=== PATIENT | female | born 1975 | race Caucasian/White ===

== ENCOUNTER 2016-05-30 23:00 | Emergency (ER) | payer BC ==
[~2016-05-30] VITALS: Ht 170.2 cm; Wt 136.0 kg
[~2016-05-30 23:00] MED LIST: ALBUAER2 INH; CALCTAB5 PO; CHOL1000 PO; IBUP-103 PO; INDO1CAP34 PO; MAGN250T3 PO; MULTTAB58 PO; RIZA5TAB10 PO
[2016-05-30 23:04] VITALS: TEMP 36.9; Ht 170.2 cm; Wt 136.0 kg
[2016-05-30] MEDS ORDERED: ACET-749 PO (23:21)
[2016-05-30] MEDS ORDERED: BENZ1CAP90 PO (23:28)
[2016-05-30] MEDS ORDERED: TYLENOL #3 HOME PACK PO ONE (23:30)
[2016-05-30] MEDS ORDERED: CALCTAB7 PO (23:33)
[2016-05-30] MEDS ORDERED: ALBU18002 INH (23:36)
[2016-05-30 23:37] VITALS: BP 98/66; PULSE 80; O2SAT 95
--- NOTE | 2016-05-30 23:59 | EMERGENCY ROOM VISIT NOTE ---
History First contact with patient: 23:07 Chief Complaint: SORETHROAT Stated Complaint: SORE THROAT,FEELS SWOLLEN SHUT,HURTS TO BREATHE History of Present Illness The patient is a 40 year old female who presents to the Emergency Room with complaints of sore throat, runny nose, mild nonproductive cough and low-grade fever. The patient reports that she started to develop sore throat this morning. She reports the pain has progressed we worsened throughout the day. She reports notable for pain, and believes that she may be starting to swelling. She also complains of bilateral ear pain. The patient denies history of asthma. She denies any bone shaking chills, back pain or myalgias. She rates her throat discomfort a 7 out of 10. Review of Systems 10 system review was performed and was negative except for pertinent positives and negatives as indicated in history of present illness Past Medical/Surgical History Medical Problems: (1) Factor V Leiden Family History FHx: heart disease Hypertension Kidney disease Kidney stones Social History Smoking Status: Former Smoker Alcohol Use: none Drug Use: none Marital Status: Occupation Status: employed Current/Historical Medications Scheduled Calcium Carbonate-Vitamin D W/ (Caltrate 600 Plus), 1 TAB PO DAILY Cholecalciferol (Vitamin D3), 4,000 UNITS PO DAILY Ibuprofen Tab (Advil), 400-600 MG PO Q6H Magnesium (Magnesium 250 mg), 250 MG PO DAILY Multiple Vitamin (Multivitamin), 1 TAB PO DAILY Scheduled PRN Acetaminophen/Codeine (Tylenol W/Codeine #3), 1-2 TABS PO q4-6h PRN for Pain Albuterol Sulfate (Proair Respiclick), 2 PUFFS INH DIRECTED PRN for SOB/ Wheezing Benzonatate (Tessalon Perles), 200 MG PO TID PRN for Cough Indomethacin (Indomethacin), 25 MG PO UD PRN for Headache Rizatriptan Benzoate (Maxalt), 5-10 MG PO UD PRN for Migraine Allergies Coded Allergies: Nickel (Verified Allergy, Severe, RASH, BLISTERS AND SWELLING OF AREA, 05/30) Physical Exam Vital Signs Date Time Temp Pulse Resp B/P Pulse Ox O2 Delivery O2 Flow Rate FiO2 05/30/16 23:37 80 18 98/66 95 05/30/16 23:20 Room Air 05/30/16 23:04 36.9 99 20 132/80 98 Room Air 05/30/16 23:04 97 Room Air Pain Rating (0-10): 7.0 Physical Exam CONSTITUTIONAL: Healthy and well nourished. Alert and oriented X 3 with positive affect. Patient does not appear acutely ill or toxic. HEENT: Normocephalic, atraumatic. Pupils equal, round and reactive. Examination of the ear shows mild bilateral TM bulging without air-fluid levels or serous effusion. Mild clear rhinorrhea noted. No scleral icterus or conjunctival injection. OROPHARYNX: Minimal posterior pharyngeal erythema without tonsillar hypertrophy , exudates or angioedema. No evidence for Olman's angina or retropharyngeal abscess. NECK: Full active range of motion without discomfort. Trachea is mobile and nontender. LYMPHATICS: No cervical chain adenopathy noted. RESPIRATORY: Clear to auscultation bilaterally with no wheezing, crackles, rhonchi or stridor. CARDIOVASCULAR: Regular rate and rhythm with no murmurs, rubs or gallops. GASTROINTESTINAL: Bowel sounds present in all quadrants. Soft and nontender to palpation. MUSCULOSKELETAL: Full range of motion of all joints without discomfort. INTEGUMENTARY: No rash or other significant dermatologic conditions noted. NEUROLOGIC: No focal neurologic deficits noted. Medical Decision & Procedures Laboratory Results Rapid strep was performed and was negative. Strep cultures are pending. Medications Administered Medications (Trade) Dose Ordered Sig/Crystal Route Start Time Stop Time Status Last Admin Dose Admin Acetaminophen/ Codeine Phosphate (TYLENOL W/ CODEINE #3 Home Pack) 1 homepack UD ONCE PO 05/30/16 23:30 05/30/16 23:31 DC 05/30/16 23:34 1 HOMEPACK ED Course Patient history and physical exam were performed. Nurse's notes were reviewed. Vital signs were reviewed and were normal. Rapid strep was performed and was negative. Strep cultures are pending. The patient was advised that she likely has a viral upper respiratory infection. We'll contact her in 48-72 hours with any positive strep cultures. She was encouraged to alternate ibuprofen and Tylenol for baseline pain relief. She was provided a home pack and prescription for Tylenol #3, and instructed to replace the Tylenol in her alternating rotation as needed for worse pain. A sore throat handout was provided. The patient also requested a prescription for Tessalon Perles as they help significantly with cough. A prescription and was provided. The patient's [id number] reports that she has Tessalon Perles at home that she can use overnight. The patient was instructed to follow-up with her PCP as needed for any persistent symptoms. Return to the emergency department for any significantly worsening symptoms. The patient was happy with plan of care, voiced understanding of all discharge instructions, and rated her discomfort a 4 out of 10 at the time of discharge. She refused any additional medications while in the emergency department. Impression Primary Impression: Viral URI Additional Impression: Sore throat (viral) Departure Information Dispostion Home / Self-Care Prescriptions Benzonatate (Tessalon Perles) 200 Mg Cap 200 MG PO TID Y for Cough, #30 CAP Prov: Brandon Arriola PA 05/30/16 Acetaminophen/Codeine (Tylenol W/Codeine #3) 300 Mg/30 Mg Tab 1-2 TABS PO q4-6h Y for Pain, #20 TAB For Initial Treatment Prov: Brandon Arriola PA 05/30/16 Forms HOME CARE DOCUMENTATION FORM, IMPORTANT VISIT INFORMATION Patient Instructions Sore Throats Self Care, [facility], ED URI Viral Additional Instructions Your rapid strep test is negative. We will culture as well. You will be contacted in 48-72 hours with any positive strep cultures. Otherwise this is a viral infection that will not respond to antibiotics. Read sore throat handout. Ibuprofen 800 mg and/or Tylenol 1000 mg every 8 hours. You may also alternate these medications for more effective pain relief: Ibuprofen --4 HRS--> Tylenol --4 HRS--> ibuprofen --4 HRS--> Tylenol .... Tylenol with codeine if needed for worse pain. Do not drink or drive while taking Tylenol with Codeine. Tessalon pearles as needed for cough. Follow-up with your family doctor as needed for further management. Problem Qualifiers
[2017-01-18] MEDS ORDERED: IMD/2 PO (12:59)
== END 2016-05-30 23:37 | disposition home or self-care (01) ==
LOC: C.EDB 23:01
DX: J02.8 Acute pharyngitis due to other specified organisms (principal); D68.2 Hereditary deficiency of other clotting factors; Z87.891 Personal history of nicotine dependence; Z82.49 Family history of ischemic heart disease and other diseases of the circulatory system; Z84.1 Family history of disorders of kidney and ureter

== ENCOUNTER 2017-01-16 15:51 | Observation (INO) | payer BC ==
[~2017-01-16] VITALS: Ht 170.2 cm; Wt 134.0 kg
[~2017-01-16 15:51] MED LIST changes: +ALBU18002 INH; -ALBUAER2 INH; -CALCTAB5 PO; +CALCTAB7 PO
[2017-01-16] MEDS ORDERED: SODIUM CHLORIDE 0.9% 1000ML 1,000 ML IV STA (16:30)
[2017-01-16] MEDS ORDERED: OPTIRAY 320 IV PRN (16:45)
[2017-01-16] MEDS ORDERED: MOME110A INH (16:45)
[2017-01-16] MEDS ORDERED: MoRPHine SULFATE 4 MG/ML 1 ML CARP\\VIAL ONE ×2 (16:45→19:48)
[2017-01-16] MEDS: MoRPHine SULFATE 10 MG/ML CARP/VIAL IV PRN ×2 (16:51→17:46)
[2017-01-16] MEDS ORDERED: ALBU0.633 INH (16:53)
[2017-01-16 16:59] LABS: BASO % 0.7 %; BASO ABS # 0.06 K/uL (0-0.2); COMPLETE YES; EOS % 2.6 %; HEMATOCRIT 39.9 % (37-47); IG% 0.2 %; LYMPH ABS # 3.14 K/uL (1.2-3.4); MEAN CELL VOLUME 90.7 fL (80-100); MEAN CORPUSCULAR HEMOGLOBIN 31.4 pg (25-34); MEAN CORPUSCULAR HGB CONC 34.6 g/dl (32-36); MEAN PLATELET VOLUME 9.4 fL (7.4-10.4); MONO % 8.5 %; PLATELET COUNT 340 K/uL (130-400); WHITE BLOOD COUNT 9.23 K/uL (4.8-10.8)
[2017-01-16] MEDS ORDERED: ONDANSETRON INJ 2 MG/ML 2 ML VIAL IV STA (17:04)
[2017-01-16 17:10] LABS: ALT/SGPT 25 U/L (12-78); AST/SGOT 16 U/L (15-37); BLOOD UREA NITROGEN 9 mg/dl (7-18); BUN/CREATININE RATIO 12.4 (10-20); CALCIUM 8.8 mg/dl (8.5-10.1); CARBON DIOXIDE 25 mmol/L (21-32); CHLORIDE 107 mmol/L (98-107); CREATININE 0.75 mg/dl (0.60-1.20); GLUCOSE 80 mg/dl (70-99); POTASSIUM 4.4 mmol/L (3.5-5.1); SODIUM 138 mmol/L (136-145)
[2017-01-16 17:13] LABS: URINE APPEARANCE CLEAR (CLEAR); URINE BILIRUBIN NEG (NEG); URINE COLOR YELLOW; URINE EPITHELIAL CELL AUTO >30 /lpf (0-5); URINE NITRITE NEG (NEG); URINE PH 6.5 (4.5-7.5); URINE SPECIFIC GRAVITY 1.022 (1.000-1.030); UROBILINOGEN NEG (NEG)
[2017-01-16 17:13] LABS: ALKALINE PHOSPHATASE 63 U/L (45-117)
[2017-01-16 17:16] LABS: MANUAL MICROSCOPIC REQUIRED? NO; REVIEW REQ? YES
[2017-01-16] MEDS ORDERED: HYDROmorphone INJ 0.5 MG/0.5 ML SYR IV STA (18:23)
--- NOTE | 2017-01-16 19:26 | DIAGNOSTIC IMAGING REPORT ---
ABD/PELVIS IV CONTRAST ONLY CT DOSE: 2212.55 mGy.cm HISTORY: Pain RLQ abd pain; unable to tolerate oral contrast TECHNIQUE: Multiaxial CT images of the abdomen and pelvis were performed following the use of intravenous contrast. A dose lowering technique was utilized adhering to the principles of ALARA. COMPARISON STUDY: 02/09/2015 FINDINGS: Lung bases are clear. Liver spleen and pancreas are unremarkable. Kidneys demonstrate a 1.5 mm nonobstructing cortical calcification lower pole right kidney. There is no evidence for an obstructing urinary tract calculus. Prior cholecystectomy. Bowel pattern is considered nonobstructive. Trace amount of free fluid within the pelvic cul-de-sac most likely physiologic. 1.5 cm left ovarian cyst. IMPRESSION: 1.5 cm left ovarian cyst. 1.5 mm nonobstructing lower pole calcification right kidney. Prior cholecystectomy. Otherwise negative study. The above report was generated using voice recognition software. It may contain grammatical, syntax or spelling errors. Electronically signed by: Vincent Streeter M.D. 01/16/2017 7:25 PM Dictated Date/Time: 01/16/2017 7:18 PM
[2017-01-16 20:20] VITALS: Ht 170.2 cm; Wt 134.0 kg
[2017-01-16] MEDS ORDERED: IV FLUIDS COMPLETED PRN (21:00)
[2017-01-16 21:13] VITALS: O2SAT 96
[2017-01-16 21:13] LABS: PREG INTERNAL POSITIVE QC POS CONTROL LINE
[2017-01-16 21:14] LABS: PREG INTERNAL NEGATIVE QC NEG CLEAR BACKGROUND
[2017-01-16] MEDS ORDERED: ACETAMINOPHEN IV 650 MG in EMPTY BAG 0 ML IV PRN (21:15)
[2017-01-16] MEDS ORDERED: ACETAMINOPHEN 325 MG TAB PO PRN (21:15)
[2017-01-16] MEDS ORDERED: ONDANSETRON INJ 2 MG/ML 2 ML VIAL IV PRN (21:15)
[2017-01-16] MEDS ORDERED: LORAZEPAM 2 MG/ML 1 ML VIAL IV PRN (21:15)
[2017-01-16] MEDS ORDERED: PROMETHAZINE HCL INJ 12.5 MG in SODIUM CHLORIDE 0.9% 50ML 50 ML IV PRN (21:15)
[2017-01-16 21:30] VITALS: BP 115/79; PULSE 75; TEMP 36.8; O2SAT 97
[2017-01-16] MEDS ORDERED: LORAZEPAM INJ 0.5 MG in SYRINGE 0.75 ML IV PRN (22:00)
[2017-01-16] MEDS ORDERED: SODIUM CHLORIDE 0.9% 1000ML 1,000 ML IV ONE (22:00)
[2017-01-16 22:22] LABS: INR 0.9 (0.9-1.1); PROTHROMBIN TIME (PATIENT) 10.1 SECONDS (9.0-12.0)
--- NOTE | 2017-01-17 00:06 | EMERGENCY ROOM VISIT NOTE ---
ED Visit Note First contact with patient: 16:08 Chief Complaint: Having pain in my lower abdomen. History of Present Illness: Ms. Manuel is a 41 year-old white female ambulates into the ED accompanied by family members complaining of lower quadrant abdominal pain. Historically patient reports status post cholecystectomy and no gastrointestinal disorders Patient reports a gradual onset of lower abdominal pain that started 4 days ago. Since that time the pain has been worsening and becoming slightly more focused in the right lower quadrant. The pain is currently described as constant sharp, but does report it does wax and wane in intensity. The pain is nonradiating. She her pain worsens when she is having positional changes and is slightly improved when she is completely lying still curled up in a ball. She has not been able to take any medications because of her nausea/vomiting. Associated with her pain she reports she has been having intermittent chills, nausea and vomiting, diarrhea up to 6 or 7 times a day; described as soft but not watery, decreased appetite and foul-smelling flagellate patient. Patient denies sweats, skin eruptions, skin color changes, upper respiratory tract symptoms, shortness of breath, chest pain, constipation, rectal bleeding, black/tarry stools, urinary symptoms, hematuria, vaginal bleeding, vaginal discharge, back/flank pain. Review of Systems: As noted above in history of present illness. All body systems were reviewed and found to be negative as noted above. Past Medical History: Asthma, bronchitis, pneumonia, status post cholecystectomy. Current Medications: Medications Dose Route/Sig Max Daily Dose Days Date Category Dose Instructions Albuterol Sulfate 0.63 Mg/3 Ml Neb 1 Vial INH Q4H PRN 01/16/17 Reported Asmanex 30 Metered Doses (Mometasone Furoate (Inhalation) 110 Mcg/Inh Aer 2 Puffs INH BID 01/16/17 Reported Proair Respiclick (Albuterol Sulfate) 108 Mcg/Act Aer 2 Puffs INH DIRECTED PRN 05/30/16 Reported Caltrate 600 Plus (Calcium Carbonate-Vitamin D W/) 1 Tab Tab 1 Tab PO DAILY 05/30/16 Reported Indomethacin 25 Mg Cap 25 Mg PO UD PRN 11/17/15 Reported Magnesium 250 mg (Magnesium) 1 Tab Tab 250 Mg PO DAILY 11/17/15 Reported Vitamin D3 (Cholecalciferol) 1,000 Unit Tab 4,000 Units PO DAILY 11/17/15 Reported Multivitamin (Multiple Vitamin) 1 Tab Tab 1 Tab PO DAILY 05/31/15 Reported WITH OMEGA 3 Maxalt (Rizatriptan Benzoate) 5 Mg Tab 5-10 Mg PO UD PRN 02/09/15 Reported TAKE 5-10 MG NEEDED FOR MIGRAINE, MAY REPEAT AFTER 2 HOURS IF NEEDED. MAXIMUM 6 TABLETS/24 HOURS. Allergies to Medications: Patient denies. Social History: Patient is currently employed; she feels safe in her home environment; she denies tobacco and alcohol use. Physical Examination: Vital Signs: Date Time Temp Pulse Resp B/P (MAP) Pulse Ox O2 Delivery O2 Flow Rate FiO2 01/16/17 20:31 63 01/16/17 20:20 Room Air 01/16/17 20:15 63 19 97 01/16/17 20:01 116/71 01/16/17 19:52 128/83 01/16/17 19:45 71 19 93 01/16/17 18:31 65 18 111/66 98 Room Air 01/16/17 17:36 89 01/16/17 15:53 36.9 87 16 119/81 93 Room Air GENERAL: 41-year-old female in moderate to severe distress due to pain, nontoxic -appearing, afebrile and hemodynamically stable. NEUROLOGICAL: Awake, alert and oriented to person, place and time. Answering questions appropriately and following commands. Normal gait. Good hand eye coordination. SKIN: Warm, dry and pink. No soft tissue eruptions or trauma noted. HEENT: Atraumatic and normocephalic. PERRLA. Sclera white and conjunctiva pink. Oral cavity moist and pink. Pharynx is nonerythematous or edematous. Speech normal. No lymphadenopathy. Trachea midline. No jugular venous distention. BACK: No tenderness over the bony spine. No CVA tenderness. THORAX: Lungs sounds are clear to auscultation and equal bilaterally with symmetrical chest wall. No wheezing, rales or rhonchi. No crepitus, tenderness , subcutaneous air or deformities noted. HEART: Regular rate and rhythm. No gallops, rubs or murmurs are appreciated. ABDOMEN: Obese and soft with mild tenderness in the left lower quadrant and moderate to severe tenderness with guarding in the right lower quadrant over McBurney's point. Decreased bowel sounds in all quadrants. No rigidity or organomegaly. EXTREMITIES: Moves all extremities well on command and with purpose. All distal neurovascular statuses are intact and equal bilaterally. ED Course: Patient is assessed as noted above. Laboratory Testing: Test 01/16/17 16:35 01/16/17 16:42 Range/Units White Blood Count 9.23 4.8-10.8 K/uL Red Blood Count 4.40 4.2-5.4 M/uL Hemoglobin 13.8 12.0-16.0 g/dL Hematocrit 39.9 37-47 % Mean Corpuscular Volume 90.7 80-100 fL Mean Corpuscular Hemoglobin 31.4 25-34 pg Mean Corpuscular Hemoglobin Concent 34.6 32-36 g/dl Platelet Count 340 130-400 K/uL Mean Platelet Volume 9.4 7.4-10.4 fL Neutrophils (%) (Auto) 54.0 % Lymphocytes (%) (Auto) 34.0 % Monocytes (%) (Auto) 8.5 % Eosinophils (%) (Auto) 2.6 % Basophils (%) (Auto) 0.7 % Neutrophils # (Auto) 4.99 1.4-6.5 K/uL Lymphocytes # (Auto) 3.14 1.2-3.4 K/uL Monocytes # (Auto) 0.78 0.11-0.59 K/uL Eosinophils # (Auto) 0.24 0-0.5 K/uL Basophils # (Auto) 0.06 0-0.2 K/uL RDW Standard Deviation 41.8 36.4-46.3 fL RDW Coefficient of Variation 12.5 11.5-14.5 % Immature Granulocyte % (Auto) 0.2 % Immature Granulocyte # (Auto) 0.02 0.00-0.02 K/uL Prothrombin Time 10.1 9.0-12.0 SECONDS Prothromb Time International Ratio 0.9 0.9-1.1 Sodium Level 138 136-145 mmol/L Potassium Level 4.4 3.5-5.1 mmol/L Chloride Level 107 98-107 mmol/L Carbon Dioxide Level 25 21-32 mmol/L Anion Gap 6.0 3-11 mmol/L Blood Urea Nitrogen 9 7-18 mg/dl Creatinine 0.75 0.60-1.20 mg/dl Est Creatinine Clear Calc Drug Dose 141.1 ml/min Estimated GFR () 114.8 Estimated GFR (Non- 99.0 BUN/Creatinine Ratio 12.4 10-20 Random Glucose 80 70-99 mg/dl Calcium Level 8.8 8.5-10.1 mg/dl Magnesium Level 2.1 1.8-2.4 mg/dl Total Bilirubin 0.3 0.2-1 mg/dl Direct Bilirubin < 0.1 0-0.2 mg/dl Aspartate Amino Transf (AST/SGOT) 16 15-37 U/L Alanine Aminotransferase (ALT/SGPT) 25 12-78 U/L Alkaline Phosphatase 63 45-117 U/L Total Protein 7.5 6.4-8.2 gm/dl Albumin 3.5 3.4-5.0 gm/dl Lipase 213 73-393 U/L Urine Color YELLOW Urine Appearance CLEAR CLEAR Urine pH 6.5 4.5-7.5 Urine Specific [place] 1.022 1.000-1.030 Urine Protein NEG NEG Urine Glucose (UA) NEG NEG Urine Ketones NEG NEG Urine Occult Blood NEG NEG Urine Nitrite NEG NEG Urine Bilirubin NEG NEG Urine Urobilinogen NEG NEG Urine Leukocyte Esterase TRACE NEG Urine WBC (Auto) 1-5 0-5 /hpf Urine RBC (Auto) 0-4 0-4 /hpf Urine Hyaline Casts (Auto) 1-5 0-5 /lpf Urine Epithelial Cells (Auto) >30 0-5 /lpf Urine Bacteria (Auto) 1+ NEG Urine Test NEG NEG C.difficile Toxin B Gene (PCR): No C. difficile toxin B gene detected Rotavirus Antigen: Negative for Rotavirus Antigen WBC Smear: Pending Shiga Toxin Test: Pending. Stool Culture: Pending Urine Culture: Pending IV Contrast Abdominal/Pelvic CT: Was reviewed by myself and read by the radiologist and shows a 1.5 cm left ovarian cyst, 1.5 mm nonobstructing lower pole calcification in the right kidney, status post cholecystectomy, nonobstructive bowel gas pattern, trace amount of free fluid in the cul-de-sac and normal-appearing appendix. Patient was with normal saline and she received 4 mg of Zofran IV for nausea, a total of 12 mg of morphine IV for pain and 0.5 mg of Dilaudid IV for pain. Patient was reassessed multiple times during her stay in the emergency department. Patient's case was reviewed with Dr. Hoyt; we agreed on diagnostic approach, treatment, disposition and plan. Patient's case was consulted with case management and the [facility] , Dr. Peralta; for medical observation/admission. Patient was educated about today's findings. Clinical Impression: Irretractable right lower quadrant abdominal pain. Decision-Making: Initially my differential diagnosis I considered appendicitis, peritonitis, ureter calculus, ovarian torsion, ectopic , ovarian cyst rupture and other causes. Disposition and Plan: Patient be brought in the hospital by the hospitalist for medical observation/admission; please see their notes and orders for final disposition and plan.
[2017-01-17] MEDS: TRAMADOL HCL 50 MG TAB PO PRN ×2 (00:22→09:24)
[2017-01-17] MEDS ORDERED: IBUPROFEN 200 MG TAB PO PRN (02:30)
--- NOTE | 2017-01-17 04:13 | HISTORY & PHYSICAL EXAMINATION ---
DATE OF ADMISSION: 01/16/2017 PRIMARY CARE DOCTOR: Dr. Felix. CHIEF COMPLAINT: Abdominal pain. HISTORY OF PRESENT ILLNESS: History obtained from patient and records. Medical history is significant for bronchial asthma, factor V Leiden deficiency , past tobacco abuse, obesity, migraine. Four days history of achy right abdominal pain, nausea, vomiting, and diarrhea, nonbloody. The patient denies dysuria. No fever, no chills, no chest pain, no shortness of breath. Last week, patient completed a course of Z-ANDREA for bronchitis. Intractable pain in the emergency room. MEDICAL HISTORY: As above. SURGERIES: She has had cholecystectomy, dental surgery. HOME MEDICATIONS: Include multivitamins, magnesium , albuterol, ProAir, Caltrate, vitamin D3, indomethacin, Asmanex. ALLERGIES: ALLERGIC TO NICKEL. FAMILY HISTORY: Blood clots. PERSONAL AND SOCIAL HISTORY: Past tobacco abuse. 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 REVIEW OF SYSTEMS: As per HPI. All other ROS negative. PHYSICAL EXAMINATION: VITAL SIGNS: Blood pressure was noted to be SBP 110/80, WI 80 RR 16 T 37, O2 sats 97 on room air. GENERAL: Noted to be uncomfortable, obese, no respiratory distress. SKIN: Normal color, dry. HEENT: [place] palpebral conjunctivae. Dry mucosa. NECK: Short neck. Nontender. CHEST: Clear to auscultation. No chest wall tenderness. Cardiovascular : RRR, Palpable LE pulses ABDOMEN: Some distention and some tenderness on the right side. EXTREMITIES: Bilateral lower extremity edema, no tenderness. NEUROLOGIC: No gross focality, coherent. LABORATORY AND DIAGNOSTIC DATA: Hemoglobin was noted to be 13.8, hematocrit 39.9, white cells 9.3, platelets 340. Sodium 137, potassium 4.4, chloride 107, CO2 of 25, BUN 9, creatinine 0.7, glucose 80. LFTs, lipase normal. UA, trace WBC esterase, hyaline casts, epithelial cells. CT abdomen and pelvis showed 1.5 left ovarian cyst, prior cholecystectomy, otherwise negative study. ASSESSMENT AND PLAN: 1. Intractable abdominal pain 2 to acute viral gastroenteritis no signs of systemic toxicity 2. Bronchial asthma, stable 3. past tobacco abuse [facility] supportive management for viral gastroenteritis consisting of analgesia, antiemetics, IV fluids DVT prophylaxis, Lovenox subcutaneously. Full code. MTDD
[2017-01-17] MEDS: KETOROLAC TROMETHAMINE 30 MG/ML VIAL IV PRN ×2 (05:27→14:27)
[2017-01-17 06:04] LABS: BASO % 0.4 %; BASO ABS # 0.04 K/uL (0-0.2); COMPLETE YES; EOS % 2.4 %; HEMATOCRIT 37.2 % (37-47); IG% 0.3 %; LYMPH % 35.4 %; LYMPH ABS # 3.33 K/uL (1.2-3.4); MEAN CELL VOLUME 91.6 fL (80-100); MEAN CORPUSCULAR HEMOGLOBIN 30.3 pg (25-34); MEAN CORPUSCULAR HGB CONC 33.1 g/dl (32-36); MEAN PLATELET VOLUME 9.3 fL (7.4-10.4); MONO % 8.1 %; NEUT % 53.4 %; PLATELET COUNT 310 K/uL (130-400); RED BLOOD COUNT 4.06 M/uL (4.2-5.4)
[2017-01-17 07:46] VITALS: BP 76/55; PULSE 59; TEMP 36.6; O2SAT 96
[2017-01-17] MEDS ORDERED: INFLUENZA ADMINISTRATION CHARGE ONE (08:00)
[2017-01-17] MEDS ORDERED: INFLUENZA VIRUS QUAD VACCINE 0.5 ML SYR IM. ONE (08:00)
[2017-01-17] MEDS: ENOXAPARIN 40 MG/0.4 ML SYR SQ SCH (08:06)
[2017-01-17 08:12] VITALS: BP 82/48
--- NOTE | 2017-01-17 11:54 | Progress Note ---
Medicine Progress Note Date & Time of Visit: Jan 17, 2017 at 11:38. Subjective Pt was seen and examined Lying in bed with no distress on face time talking with her phone She said that she continues to have abdominal tenderness in her right side of her abdomen she said that she has not had any BM today tolerated clear liquid diet and would like to try full liquid her pain seems to improve today denies any chest pain, palpitation, dizziness and sob Objective Last 8 Hrs Date Time Temp Pulse Resp B/P (MAP) Pulse Ox O2 Delivery O2 Flow Rate FiO2 01/17/17 08:30 Room Air 01/17/17 08:12 82/48 (59) 01/17/17 07:46 36.6 59 18 76/55 (62) 96 Physical Exam: General-[] Eyes-[] ENT-[] Neck-[] Lungs-[] Heart-[] Abdomen-[] Extremities-[] Neuro-[] Laboratory Results: Last 24 Hours Test 01/16/17 16:35 01/16/17 16:42 01/17/17 05:35 White Blood Count 9.23 K/uL 9.40 K/uL Red Blood Count 4.40 M/uL 4.06 M/uL Hemoglobin 13.8 g/dL 12.3 g/dL Hematocrit 39.9 % 37.2 % Mean Corpuscular Volume 90.7 fL 91.6 fL Mean Corpuscular Hemoglobin 31.4 pg 30.3 pg Mean Corpuscular Hemoglobin Concent 34.6 g/dl 33.1 g/dl Platelet Count 340 K/uL 310 K/uL Mean Platelet Volume 9.4 fL 9.3 fL Neutrophils (%) (Auto) 54.0 % 53.4 % Lymphocytes (%) (Auto) 34.0 % 35.4 % Monocytes (%) (Auto) 8.5 % 8.1 % Eosinophils (%) (Auto) 2.6 % 2.4 % Basophils (%) (Auto) 0.7 % 0.4 % Neutrophils # (Auto) 4.99 K/uL 5.01 K/uL Lymphocytes # (Auto) 3.14 K/uL 3.33 K/uL Monocytes # (Auto) 0.78 K/uL 0.76 K/uL Eosinophils # (Auto) 0.24 K/uL 0.23 K/uL Basophils # (Auto) 0.06 K/uL 0.04 K/uL RDW Standard Deviation 41.8 fL 42.6 fL RDW Coefficient of Variation 12.5 % 12.8 % Immature Granulocyte % (Auto) 0.2 % 0.3 % Immature Granulocyte # (Auto) 0.02 K/uL 0.03 K/uL Prothrombin Time 10.1 SECONDS Prothromb Time International Ratio 0.9 Sodium Level 138 mmol/L Potassium Level 4.4 mmol/L Chloride Level 107 mmol/L Carbon Dioxide Level 25 mmol/L Anion Gap 6.0 mmol/L Blood Urea Nitrogen 9 mg/dl Creatinine 0.75 mg/dl Est Creatinine Clear Calc Drug Dose 141.1 ml/min Estimated GFR () 114.8 Estimated GFR (Non- 99.0 BUN/Creatinine Ratio 12.4 Random Glucose 80 mg/dl Calcium Level 8.8 mg/dl Magnesium Level 2.1 mg/dl Total Bilirubin 0.3 mg/dl Direct Bilirubin < 0.1 mg/dl Aspartate Amino Transf (AST/SGOT) 16 U/L Alanine Aminotransferase (ALT/SGPT) 25 U/L Alkaline Phosphatase 63 U/L Total Protein 7.5 gm/dl Albumin 3.5 gm/dl Lipase 213 U/L Urine Color YELLOW Urine Appearance CLEAR Urine pH 6.5 Urine Specific [place] 1.022 Urine Protein NEG Urine Glucose (UA) NEG Urine Ketones NEG Urine Occult Blood NEG Urine Nitrite NEG Urine Bilirubin NEG Urine Urobilinogen NEG Urine Leukocyte Esterase TRACE Urine WBC (Auto) 1-5 /hpf Urine RBC (Auto) 0-4 /hpf Urine Hyaline Casts (Auto) 1-5 /lpf Urine Epithelial Cells (Auto) >30 /lpf Urine Bacteria (Auto) 1+ Urine Test NEG Date/Time Source Procedure Growth Status 01/16/17 17:00 Stool C.difficile Toxin B Gene (PCR) - Final No C. difficile toxin B gene detected Complete 01/16/17 17:00 Stool Rotavirus Antigen - Final Negative for Rotavirus Antigen Complete 01/16/17 17:00 Stool WBC Smear - Final Resulted 01/16/17 17:00 Stool Shiga Toxin Test Pending Resulted 01/16/17 17:00 Stool Stool Culture Pending Resulted 01/16/17 16:42 Urine , Clean Catch Urine Culture Pending Received Assessment & Plan Abdominal pain/ Nausea/Diarrhea possible related viral gastroenteritis CT abd showed 1.5 cm left ovarian cyst. 1.5 mm nonobstructing lower pole calcification right kidney. Otherwise negative study Stool for C-diff and rotavirus negative Continue pain control, Zofran advanced diet to full liquid continue IVF loperamide given for the diarrhea Abnormal UA Asymptomatic afebrile, no leukocytosis preliminary urine cx growth pinpoint, will reintubate No abx given Bronchial asthma stable Obesity Counseling on weight loss DVT px on Lovenox subq CODE Status Full code Current Inpatient Medications: Current Inpatient Medications Medications (Trade) Dose Ordered Sig/Crystal Route Start Time Stop Time Status Last Admin Dose Admin Ioversol (Optiray 320) 125 ml UD PRN IV 01/16/17 16:45 01/20/17 16:44 Miscellaneous (Iv Fluids Completed) 1 ea PRN PRN N/A 01/16/17 21:00 01/16/18 20:59 Enoxaparin Sodium (Lovenox Inj) 40 mg Q24H SQ 01/17/17 09:00 02/16/17 08:59 01/17/17 08:06 40 MG Acetaminophen (Tylenol Tab) 650 mg Q4H PRN PO 01/16/17 21:15 02/15/17 21:14 Ondansetron HCl (Zofran Inj) 4 mg Q6H PRN IV 01/16/17 21:15 02/15/17 21:14 01/17/17 00:22 4 MG Promethazine HCl 12.5 mg/Sodium Chloride 50.5 ml @ 204 mls/hr Q6H PRN IV 01/16/17 21:15 02/15/17 21:14 Ketorolac Tromethamine (Toradol Inj) 30 mg Q6H PRN IV 01/16/17 21:15 01/21/17 21:14 01/17/17 05:27 30 MG Lorazepam (Ativan Inj) 0.5 mg Q4H PRN IV 01/16/17 21:15 02/15/17 21:14 Tramadol HCl (Ultram Tab) not relieved by tylenol @ Q6H PRN PO 01/16/17 21:15 02/15/17 21:14 01/17/17 09:24 50 MG Acetaminophen 650 mg/Empty Bag 65 ml @ 260 mls/hr Q6H PRN IV 01/16/17 21:15 02/15/17 21:14 Lorazepam 0.5 mg/ Syringe 1 ml @ 1 mls/min Q4H PRN IV 01/16/17 22:00 02/15/17 21:59 Ibuprofen (Advil Tab) 400 mg Q6H PRN PO 01/17/17 02:30 02/16/17 02:29 Miscellaneous Information (Order Awaiting Action) 1 ea QS N/A 01/17/17 16:00 02/16/17 15:59
[2017-01-17 15:41] VITALS: BP 115/74; PULSE 72; TEMP 37; O2SAT 93
[2017-01-17] MEDS ORDERED: NURSING VERBAL MED ORDER ONE (18:00)
[2017-01-17] MEDS ORDERED: LOPERAMIDE HCL 2 MG CAP PO ONE (18:00)
[2017-01-17] MEDS ORDERED: MOMETASONE FUROATE 14 PUFF/1 INHALER INH SCH (20:00)
--- NOTE | 2017-01-17 20:11 | Discharge Instructions ---
Discharge Instructions Date of Service Jan 17, 2017. Admission Reason for Admission: Abdominal Pain Discharge Discharge Diagnosis / Problem: Possible Viral gastroenteritis Discharge Goals Goal(s): Decrease discomfort, Improve function, Improve disease control Activity Recommendations Activity Limitations: resume your previous activity (as tolerated) . Instructions / Follow-Up Instructions / Follow-Up HOSPITAL Follow up with your primary care provider Dr. Felix ON 01/23/17 @ 10: 45 AM ( NEW APPOINTMENT IS MADE ) Current Hospital Diet AVOID FIBERS , DAIRY PRODUCTS , EXCESSIVE SUGARY DRINKS FOR A LEAST 2 WEEKS - WILL CAUSE MORE DIARRHEA , ABDOMINAL CRAMPS AND BLOATING WASH YOUR HANDS WITH SOAP AND WATER -AFTER USING BATHROOM AND BEFORE EACH MEALS CAN TAKE IMODIUM ( OVER THE COUNTER NEEDED AFTER EACH LOOSE BOWEL MOVEMENT ) PLEASE LET YOUR FAMILY PHYSICIAN IF YOU ARE EXPERIENCING WORSENING OF ABDOMINAL CRAMPS , DIARRHEA , NAUSEA /VOMITING /FEVER Discharge Diet Recommended Diet: Low Fiber Diet Pending Studies Studies pending at discharge: no Medical Emergencies . Who to Call and When: Medical Emergencies: If at any time you feel your situation is an emergency, please call 911 immediately. . Non-Emergent Contact Non-Emergency issues call your: Primary Care Provider . . "Provider Documentation" section prepared by Rosie Null. . VTE Core Measure Inpt VTE Proph given/why not?: Enoxaparin (Lovenox)SQ
[2017-01-17] MEDS ORDERED: LOPERAMIDE HCL 2 MG CAP PO PRN (20:15)
[2017-01-18 00:22] VITALS: BP 107/63; PULSE 70; TEMP 37.2; O2SAT 96
[2017-01-18] MEDS: ENOXAPARIN 40 MG/0.4 ML SYR SQ SCH (09:05)
[2017-01-18 11:29] VITALS: BP 107/71; PULSE 80; TEMP 37.3; O2SAT 96
[2017-01-18 11:35] VITALS: BP 107/71; PULSE 80; TEMP 37.3; O2SAT 96
--- NOTE | 2017-01-18 12:56 | Progress Note ---
Internal Med Progress Note Date of Service: Jan 18, 2017. Provider Documentation: SUBJECTIVE: no complain of nausea /vomiting, tolerating regular diet well has persistent pain in rt lower quadrant , seems to be improved a bit had 3 loose bowel movement today , no fever or chills wants to be discharged OBJECTIVE: Vital Signs-as noted below Exam: General-no sign of distress , comfortable Eyes-sclera non icteric , PERRLA/EOMI ENT-NAD Neck-no JVD , no thyromegaly Lungs-CTA , no wheeze or rales Heart-regular S1/S2 Abdomen-soft, mild tenderness on RLQ , no rebound , no guarding , bowel sound active no CVA tenderness Extremities-no lower ext edema Neuro-AAO x3, no focal deficit Lab data as noted below. ASSESSMENT & PLAN: RLQ ABDOMINAL PAIN /NAUSEA /VOMITING : possible due to vial gastroenteritis CT abdomen/pelvis no evidence of inflammation , 1.5 cm non obstructing stone on rt lower pole of kidney symptom has improved, afebrile no complain of Nausea /vomiting since yesterday tolerating diet well normal white count, no lab abnormality noted stable to be discharged home DIARRHEA : possible due to viral gastroenteritis stool Cdiff toxin assay , stool culture been negative no sign of systemic infection /no evidence of local infection in CT abdomen started on Imodium pt is asked to avoid -high fiber /high fat content /avoid dairy for 1 week till diarrhea resolved has hospital follow up scheduled with family physician in a week HX OF ASTHMA stable , no wheeze or respiratory distress cont out pt INH DVT PROPHYLAXIS sub q Lovenox DISPOSITION Discharge home today Medicine follow up with Dr Felix Vital Signs: Date Time Temp Pulse Resp B/P (MAP) Pulse Ox O2 Delivery O2 Flow Rate FiO2 01/18/17 11:35 37.3 80 16 96 Room Air 01/18/17 11:29 37.3 80 16 107/71 (83) 96 Room Air 01/18/17 09:00 Room Air 01/18/17 00:22 37.2 70 18 107/63 (78) 96 Room Air 01/18/17 00:00 Room Air 01/17/17 16:00 Room Air 01/17/17 15:41 37.0 72 18 115/74 (88) 93
[2017-01-18] MEDS ORDERED: IMD/2 PO (12:59)
--- NOTE | 2017-01-18 13:05 | Discharge Summary ---
Discharge Summary Date of Service Jan 18, 2017. Discharge Summary Admission Date: Jan 16, 2017 at 20:41 Discharge Date: Jan 18, 2017 Discharge Disposition: Home Principal Diagnosis: Possible Viral gastroenteritis Procedures: ABD/PELVIS IV CONTRAST ONLY CT DOSE: 2212.55 mGy.cm HISTORY: Pain RLQ abd pain; unable to tolerate oral contrast TECHNIQUE: Multiaxial CT images of the abdomen and pelvis were performed following the use of intravenous contrast. A dose lowering technique was utilized adhering to the principles of ALARA. COMPARISON STUDY: 02/09/2015 FINDINGS: Lung bases are clear. Liver spleen and pancreas are unremarkable. Kidneys demonstrate a 1.5 mm nonobstructing cortical calcification lower pole right kidney. There is no evidence for an obstructing urinary tract calculus. Prior cholecystectomy. Bowel pattern is considered nonobstructive. Trace amount of free fluid within the pelvic cul-de-sac most likely physiologic. 1.5 cm left ovarian cyst. IMPRESSION: 1.5 cm left ovarian cyst. 1.5 mm nonobstructing lower pole calcification right kidney. Prior cholecystectomy. Otherwise negative study. The above report was generated using voice recognition software. It may contain grammatical, syntax or spelling errors. Medication Reconciliation New Medications: Loperamide Hcl (Imodium) 2 Mg Cap 2 MG PO Q8 for Diarrhea, #30 CAP TAKE AFTER EACH LOOSE STOOL OVER THE COUNTER Continued Medications: Albuterol Sulfate (Proair Respiclick) 108 Mcg/Act Aer 2 PUFFS INH DIRECTED PRN for SOB/Wheezing Albuterol Sulfate (Albuterol Sulfate) 0.63 Mg/3 Ml Neb 1 VIAL INH Q4H PRN for SOB/Wheezing Calcium Carbonate-Vitamin D W/ (Caltrate 600 Plus) 1 Tab Tab 1 TAB PO DAILY, TAB Cholecalciferol (Vitamin D3) 1,000 Unit Tab 4000 UNITS PO DAILY, 3 Refills Indomethacin (Indomethacin) 25 Mg Cap 25 MG PO UD PRN for Headache Magnesium (Magnesium 250 mg) 1 Tab Tab 250 MG PO DAILY Mometasone Furoate (Inhalation (Asmanex 30 Metered Doses) 110 Mcg/Inh Aer 2 PUFFS INH BID Multiple Vitamin (Multivitamin) 1 Tab Tab 1 TAB PO DAILY, TAB WITH OMEGA 3 Rizatriptan Benzoate (Maxalt) 5 Mg Tab 5-10 MG PO UD PRN for Migraine, TAB TAKE 5-10 MG NEEDED FOR MIGRAINE, MAY REPEAT AFTER 2 HOURS IF NEEDED. MAXIMUM 6 TABLETS/24 HOURS. Referrals At Discharge Follow up Referrals: Physician Referral - 01/23/17 with Finn Felix III, M.D. Admission Information HPI (per Admitting provider): DATE OF ADMISSION: 01/16/2017 PRIMARY CARE DOCTOR: Dr. Felix. CHIEF COMPLAINT: Abdominal pain. HISTORY OF PRESENT ILLNESS: History obtained from patient and records. Medical history is significant for bronchial asthma, factor V Leiden deficiency , past tobacco abuse, obesity, migraine. Four days history of achy right abdominal pain, nausea, vomiting, and diarrhea, nonbloody. The patient denies dysuria. No fever, no chills, no chest pain, no shortness of breath. Last week, patient completed a course of Z-ANDREA for bronchitis. Intractable pain in the emergency room. MEDICAL HISTORY: As above. SURGERIES: She has had cholecystectomy, dental surgery. HOME MEDICATIONS: Include multivitamins, magnesium , albuterol, ProAir, Caltrate, vitamin D3, indomethacin, Asmanex. ALLERGIES: ALLERGIC TO NICKEL. FAMILY HISTORY: Blood clots. PERSONAL AND SOCIAL HISTORY: Past tobacco abuse. 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 Physical Exam (per Admitting): REVIEW OF SYSTEMS: As per HPI. All other ROS negative. PHYSICAL EXAMINATION: VITAL SIGNS: Blood pressure was noted to be SBP 110/80, MI 80 RR 16 T 37, O2 sats 97 on room air. GENERAL: Noted to be uncomfortable, obese, no respiratory distress. SKIN: Normal color, dry. HEENT: [place] palpebral conjunctivae. Dry mucosa. NECK: Short neck. Nontender. CHEST: Clear to auscultation. No chest wall tenderness. Cardiovascular : RRR, Palpable LE pulses ABDOMEN: Some distention and some tenderness on the right side. EXTREMITIES: Bilateral lower extremity edema, no tenderness. NEUROLOGIC: No gross focality, coherent. Hospital Course RLQ ABDOMINAL PAIN /NAUSEA /VOMITING : possible due to vial gastroenteritis CT abdomen/pelvis no evidence of inflammation , 1.5 cm non obstructing stone on rt lower pole of kidney symptom has improved, afebrile no complain of Nausea /vomiting since yesterday tolerating diet well normal white count, no lab abnormality noted stable to be discharged home DIARRHEA : possible due to viral gastroenteritis stool Cdiff toxin assay , stool culture been negative no sign of systemic infection /no evidence of local infection in CT abdomen started on Imodium pt is asked to avoid -high fiber /high fat content /avoid dairy for 1 week till diarrhea resolved has hospital follow up scheduled with family physician in a week HX OF ASTHMA stable , no wheeze or respiratory distress cont out pt INH DVT PROPHYLAXIS sub q Lovenox DISPOSITION Discharge home today Medicine follow up with Dr Felix Discharge Instructions DI: Medical v4 Discharge Instructions Date of Service Jan 17, 2017. Admission Reason for Admission: Abdominal Pain Discharge Discharge Diagnosis / Problem: Possible Viral gastroenteritis Discharge Goals Goal(s): Decrease discomfort, Improve function, Improve disease control Activity Recommendations Activity Limitations: resume your previous activity (as tolerated) . Instructions / Follow-Up Instructions / Follow-Up HOSPITAL Follow up with your primary care provider Dr. Felix ON 01/23/17 @ 10: 45 AM ( NEW APPOINTMENT IS MADE ) Current Hospital Diet AVOID FIBERS , DAIRY PRODUCTS , EXCESSIVE SUGARY DRINKS FOR A LEAST 2 WEEKS - WILL CAUSE MORE DIARRHEA , ABDOMINAL CRAMPS AND BLOATING WASH YOUR HANDS WITH SOAP AND WATER -AFTER USING BATHROOM AND BEFORE EACH MEALS CAN TAKE IMODIUM ( OVER THE COUNTER NEEDED AFTER EACH LOOSE BOWEL MOVEMENT ) PLEASE LET YOUR FAMILY PHYSICIAN IF YOU ARE EXPERIENCING WORSENING OF ABDOMINAL CRAMPS , DIARRHEA , NAUSEA /VOMITING /FEVER Discharge Diet Recommended Diet: Low Fiber Diet Pending Studies Studies pending at discharge: no Medical Emergencies . Who to Call and When: Medical Emergencies: If at any time you feel your situation is an emergency, please call 911 immediately. . Non-Emergent Contact Non-Emergency issues call your: Primary Care Provider . . "Provider Documentation" section prepared by Rosie Null. . VTE Core Measure Inpt VTE Proph given/why not?: Enoxaparin (Lovenox)SQ Additional Copies To Finn Felix III, M.D.
== END 2017-01-18 13:30 | disposition home or self-care (01) ==
LOC: C.EDB 15:53 → C.4E 20:41 → ENRESERV 21:07
PROVIDERS: ADMIT Internal Medicine; ATTEND Hospitalist
DX: R10.31 Right lower quadrant pain (principal); Z90.49 Acquired absence of other specified parts of digestive tract; J45.909 Unspecified asthma, uncomplicated; D68.2 Hereditary deficiency of other clotting factors; Z98.890 Other specified postprocedural states; Z87.891 Personal history of nicotine dependence; Z87.01 Personal history of pneumonia (recurrent)